=== PATIENT | female | born 1960 ===

== ENCOUNTER 2017-12-14 17:20 | Emergency (ER) | payer OTHER ==
[~2017-12-14] VITALS: Ht 152.4 cm; Wt 56.7 kg
--- NOTE | 2017-12-14 17:51 | ER Report ---
History and Physical Time Seen By MD: 17:51 (JORDAN MARIE-NIKO) HPI/ROS CHIEF COMPLAINT: Fainting episode HISTORY OF PRESENT ILLNESS: This is a 57-year-old female who presents to the emergency department from [facility] for a near syncopal episode. Patient was nearing the end of her physical therapy for her wrist fracture that she had in October, this was the 1st therapy appointment after having the cast removed. The patient states that towards the end of the session she became lightheaded, began to sweat, little bit of nausea and then began to "blackout" the staff at [facility] assisted her to the ground she did not fall. Patient arrives alert and oriented, no complaints other than mild nausea. No chest pain, shortness of breath, loss of bowel or bladder. No aches, chills, vomiting, diarrhea this time. REVIEW OF SYSTEMS: Constitutional: No fever, no chills. Eyes: No discharge. ENT: No sore throat. Cardiovascular: No chest pain, no palpitations. Respiratory: No cough, no shortness of breath. Gastrointestinal: No abdominal pain, no vomiting. Genitourinary: No hematuria. Musculoskeletal: No back pain. Skin: No rashes. Neurological: As above. (JORDAN MARIE-NIKO) Allergies: Coded Allergies: No Known Drug Allergies (Unverified , 12/14/17) Home Meds No Active Prescriptions or Reported Meds Past Medical/Surgical History Patient has a past medical and surgical history of fatty liver, left wrist fracture without surgery. Acid reflux. (JORDAN MARIE-NIKO) Reviewed Nurses Notes: Yes (JORDAN MARIE) Constitutional Vital Sign - Last 24 Hours 12/14/17 12/14/17 12/14/17 12/14/17 17:55 17:58 18:00 18:20 Temp 97.8 Pulse 57 55 Resp 16 7 B/P (MAP) 123/78 (93) 128/77 128/77 (94) Pulse Ox 97 O2 Delivery Room Air 12/14/17 12/14/17 12/14/17 12/14/17 18:30 18:50 19:00 19:30 Pulse 55 Resp 9 B/P (MAP) 119/69 (86) 114/39 (64) 106/72 (83) Pulse Ox 96 12/14/17 12/14/17 12/14/17 19:35 19:56 20:02 Pulse 64 85 Resp 18 16 B/P (MAP) 109/72 (84) 115/82 (93) Pulse Ox 94 95 O2 Delivery Room Air (RUSTSHARATH MD) Physical Exam General Appearance: The patient is alert, has no immediate need for airway protection and no signs of toxicity. Eyes: Pupils equal and round no pallor or injection. ENT, Mouth: Mucous membranes are moist. Respiratory: There are no retractions, lungs are clear to auscultation. Cardiovascular: Regular rate and rhythm, no murmurs, clicks or rubs. Gastrointestinal: Abdomen is soft and non tender, no masses, bowel sounds normal. Neurological: Alert and oriented 4. Moving all extremities. No focal neuro deficits. Following all commands. Cranial nerves II through XII intact and symmetrical. Skin: Warm and dry, no rashes. Musculoskeletal: Neck is supple non tender. Extremities are nontender, nonswollen and have full range of motion. DIFFERENTIAL DIAGNOSIS: After history and physical exam differential diagnosis was considered for syncope including but not limited to vasovagal syncope, arrhythmia, dehydration, and blood loss. (JORDAN MARIE [facility]) Medical Decision Making Data Points Result Diagram: 12/14/17182412/14/171824 Laboratory Hematology Test 12/14/17 18:25 12/14/17 19:26 Red Blood Count 4.43 M/uL (4.17-5.56) Mean Corpuscular Volume 90.5 fL (80.0-96.0) Mean Corpuscular Hemoglobin 31.7 pg (26.0-33.0) Mean Corpuscular Hemoglobin Concent 35.1 g/dL (32.0-36.0) Red Cell Distribution Width 13.0 % (11.5-14.5) Mean Platelet Volume 8.6 fL (7.2-11.1) Neutrophils (%) (Auto) 80.8 % (39.4-72.5) Lymphocytes (%) (Auto) 15.2 % (17.6-49.6) Monocytes (%) (Auto) 3.2 % (4.1-12.4) Eosinophils (%) (Auto) 0.3 % (0.4-6.7) Basophils (%) (Auto) 0.5 % (0.3-1.4) Nucleated RBC Relative Count (auto) 0.0 /100WBC Neutrophils # (Auto) 8.9 K/uL (2.0-7.4) Lymphocytes # (Auto) 1.7 K/uL (1.3-3.6) Monocytes # (Auto) 0.4 K/uL (0.3-1.0) Eosinophils # (Auto) 0.0 K/uL (0.0-0.5) Basophils # (Auto) 0.0 K/uL (0.0-0.1) Nucleated RBC Absolute Count (auto) 0.00 K/uL Sodium Level 135 mmol/L (137-145) Potassium Level 4.0 mmol/L (3.5-5.0) Chloride Level 100 mmol/L (98-107) Carbon Dioxide Level 24 mmol/L (22-31) Blood Urea Nitrogen 15 mg/dl (7-18) Creatinine 0.80 mg/dl (0.52-1.04) Glomerular Filtration Rate Calc > 60.0 Random Glucose 116 mg/dl (75-110) Calcium Level 9.6 mg/dl (8.4-10.2) Total Bilirubin 0.5 mg/dl (0.2-1.3) Aspartate Amino Transf (AST/SGOT) 33 U/L (0-35) Alanine Aminotransferase (ALT/SGPT) 64 U/L (0-56) Alkaline Phosphatase 93 U/L (0-126) Troponin I < 0.012 ng/ml Total Protein 7.7 gm/dl (6.3-8.2) Albumin 4.6 g/dl (3.5-5.0) Urine Color Yellow Urine Clarity Cloudy Urine pH 8.0 pH (4.8-9.5) Urine Specific [place] 1.016 Urine Protein Negative mg/dL (NEGATIVE) Urine Glucose (UA) Negative mg/dL (NEGATIVE) Urine Ketones Trace mg/dL (NEGATIVE) Urine Blood Negative (NEGATIVE) Urine Nitrite Negative (NEGATIVE) Urine Bilirubin Negative (NEGATIVE) Urine Urobilinogen Negative mg/dL (0.2-1.9) Urine Leukocyte Esterase Negative (NEGATIVE) Urine RBC None /HPF (0-2/HPF) Urine WBC <1 /HPF (0-5/HPF) Urine Squamous Epithelial Cells Moderate /LPF (</=FEW) Urine Amorphous Crystals Few /HPF Urine Bacteria Negative /HPF (NONE-FEW) Urine Mucus Few /HPF (NONE-FEW) Chemistry Test 12/14/17 18:25 12/14/17 19:26 White Blood Count 11.0 k/uL (4.5-11.0) Red Blood Count 4.43 M/uL (4.17-5.56) Hemoglobin 14.0 g/dL (12.0-16.0) Hematocrit 40.0 % (34.0-47.0) Mean Corpuscular Volume 90.5 fL (80.0-96.0) Mean Corpuscular Hemoglobin 31.7 pg (26.0-33.0) Mean Corpuscular Hemoglobin Concent 35.1 g/dL (32.0-36.0) Red Cell Distribution Width 13.0 % (11.5-14.5) Platelet Count 206 K/uL (150-450) Mean Platelet Volume 8.6 fL (7.2-11.1) Neutrophils (%) (Auto) 80.8 % (39.4-72.5) Lymphocytes (%) (Auto) 15.2 % (17.6-49.6) Monocytes (%) (Auto) 3.2 % (4.1-12.4) Eosinophils (%) (Auto) 0.3 % (0.4-6.7) Basophils (%) (Auto) 0.5 % (0.3-1.4) Nucleated RBC Relative Count (auto) 0.0 /100WBC Neutrophils # (Auto) 8.9 K/uL (2.0-7.4) Lymphocytes # (Auto) 1.7 K/uL (1.3-3.6) Monocytes # (Auto) 0.4 K/uL (0.3-1.0) Eosinophils # (Auto) 0.0 K/uL (0.0-0.5) Basophils # (Auto) 0.0 K/uL (0.0-0.1) Nucleated RBC Absolute Count (auto) 0.00 K/uL Glomerular Filtration Rate Calc > 60.0 Calcium Level 9.6 mg/dl (8.4-10.2) Total Bilirubin 0.5 mg/dl (0.2-1.3) Aspartate Amino Transf (AST/SGOT) 33 U/L (0-35) Alanine Aminotransferase (ALT/SGPT) 64 U/L (0-56) Alkaline Phosphatase 93 U/L (0-126) Troponin I < 0.012 ng/ml Total Protein 7.7 gm/dl (6.3-8.2) Albumin 4.6 g/dl (3.5-5.0) Urine Color Yellow Urine Clarity Cloudy Urine pH 8.0 pH (4.8-9.5) Urine Specific [place] 1.016 Urine Protein Negative mg/dL (NEGATIVE) Urine Glucose (UA) Negative mg/dL (NEGATIVE) Urine Ketones Trace mg/dL (NEGATIVE) Urine Blood Negative (NEGATIVE) Urine Nitrite Negative (NEGATIVE) Urine Bilirubin Negative (NEGATIVE) Urine Urobilinogen Negative mg/dL (0.2-1.9) Urine Leukocyte Esterase Negative (NEGATIVE) Urine RBC None /HPF (0-2/HPF) Urine WBC <1 /HPF (0-5/HPF) Urine Squamous Epithelial Cells Moderate /LPF (</=FEW) Urine Amorphous Crystals Few /HPF Urine Bacteria Negative /HPF (NONE-FEW) Urine Mucus Few /HPF (NONE-FEW) Urinalysis Test 12/14/17 19:26 Urine Color Yellow Urine Clarity Cloudy Urine pH 8.0 pH (4.8-9.5) Urine Specific [place] 1.016 Urine Protein Negative mg/dL (NEGATIVE) Urine Glucose (UA) Negative mg/dL (NEGATIVE) Urine Ketones Trace mg/dL (NEGATIVE) Urine Blood Negative (NEGATIVE) Urine Nitrite Negative (NEGATIVE) Urine Bilirubin Negative (NEGATIVE) Urine Urobilinogen Negative mg/dL (0.2-1.9) Urine Leukocyte Esterase Negative (NEGATIVE) Urine RBC None /HPF (0-2/HPF) Urine WBC <1 /HPF (0-5/HPF) Urine Squamous Epithelial Cells Moderate /LPF (</=FEW) Urine Amorphous Crystals Few /HPF Urine Bacteria Negative /HPF (NONE-FEW) Urine Mucus Few /HPF (NONE-FEW) (SHARATH CABRERA MD) EKG/Imaging EKG Interpretation 12 lead EK. Rhythm: Sinus bradycardia, ventricular rate 58 bpm. [place]: normal QRS: normal ST segments: No acute ST depression or elevation. Imaging PATIENT NAME: Deion MCKEON: 1960 MR: [id number] V: [id number] EXAM DATE: ORDERING PHYSICIAN: JORDAN MARIE TECHNOLOGIST: Location: [facility] - [place] Patient: Deion Ramirez : 1960 Visit/Account:[id number] Date of Sevice: 12/14/2017 INDICATION: near syncope. DATE: 12/14/2017 7:17 PM. TECHNIQUE: CHEST PA AND LAT COMPARISON: None FINDINGS: Heart size is normal. No effusion, consolidation, or pneumothorax. Normal expansion. IMPRESSION: No acute findings. Report Dictated By: Derrick Barragan MD at 12/14/2017 7:17 PM Report E-Signed By: Derrick Barragan MD at 12/14/2017 7:18 PM WSN:[id number] (JORDAN MARIE-BC) ED Course/Re-evaluation Clinical Indication for ER IV: Hydration, IV Access ED Course Patient was admitted to a room. A history and physical were obtained. Differential diagnoses were considered. An IV was started. 500 mils of lactated Ringer's was given. A CBC, CMP, UA and troponin were obtained. Laboratory studies and UA unremarkable. Negative troponin. 4 mg IV Zofran was given. EKG showing normal sinus rhythm no acute ST abnormalities. Two-view chest x-ray showing no acute cardiopulmonary process. I did review the results with the patient and her . I did explain to them that this is likely a vasovagal event related to her physical therapy. I also encouraged her to drink some fluids and eat something before her next physical therapy appointment. Patient was also encouraged to follow-up with her primary care provider or return to the emergency department for any other concerns or worsening symptoms. Patient and her had no other questions or concerns were discharged home. Decision to Disposition Date: Dec 14, 2017 Decision to Disposition Time: 19:44 (JORADN MARIE) Depart Departure Latest Vital Signs Vital Signs Date Time Temp Pulse Resp B/P (MAP) Pulse Ox O2 Delivery O2 Flow Rate FiO2 12/14/17 20:02 85 16 115/82 (93) 95 Room Air 12/14/17 17:58 97.8 (SHARATH CABRERA MD) Impression: Primary Impression: Vasovagal near syncope Condition: Improved Disposition: HOME OR SELF-CARE Referrals: APURVA HERNANDEZ MD (PCP) New Scripts No Active Prescriptions or Reported Meds Patient Instructions: Near Syncope (ED) Additional Instructions: Drink plenty of fluids. Get plenty of rest. Be sure to eat and drink fluids before your next physical therapy appointment. Sure to follow up with your primary care provider for any future needs or may have. May return to the emergency department for any other concerns or worsening symptoms. HEALTHCARE FINANCIAL ANALYST/PA consult with MD: Verbally (SHARATH CABRERA MD) JORDAN MARIE BONDING SUPERVISOR-BC Dec 14, 2017 17:51 SHARATH CABRERA MD Dec 14, 2017 18:10
[2017-12-14] MEDS ORDERED: ONDANSETRON 4 MG/2 ML VIAL IVP ONE (18:05)
[2017-12-14] MEDS ORDERED: LR(*) 1000 ML BAG 1,000 ML IV ONE (18:05)
--- NOTE | 2017-12-14 18:11 | EKG ---
[place] [facility] [place] LORRAINE MARIE : [id number] MR: [id number] V: [id number] EXAM DATE: ORDERING PHYSICIAN: JORDAN MARIE TECHNOLOGIST: EMMA Test Reason : SYNCOPE Blood Pressure : / mmHG Vent. Rate : 058 BPM Atrial Rate : 058 BPM P-R Int : 154 ms QRS Dur : 084 ms QT Int : 470 ms P-R-T Axes : 045 028 -08 degrees QTc Int : 461 ms Sinus bradycardia Diffuse ST-T changes concerning for ischemia Prolonged QT Abnormal ECG No previous ECGs available Confirmed by KYRA PATTERSON ([id number]) on 12/14/2017 8:24:07 PM Referred By: JORDAN Confirmed By:KYRA PATTERSON
[2017-12-14 18:33] LABS: PLATELET COUNT, AUTOMATED 206 K/uL (150-450)
--- NOTE | 2017-12-14 19:24 | RADIOLOGY IMAGING REPORT ---
FACILITY: [facility] - [place], [place] PATIENT NAME: Deion Ramirez : 1960 MR: [id number] V: [id number] EXAM DATE: ORDERING PHYSICIAN: JORDAN MARIE TECHNOLOGIST: Location: [facility] Patient: Deion Ramirez : 1960 Visit/Account:[id number] Date of Sevice: 12/14/2017 INDICATION: near syncope. DATE: 12/14/2017 7:17 PM. TECHNIQUE: CHEST PA AND LAT COMPARISON: None FINDINGS: Heart size is normal. No effusion, consolidation, or pneumothorax. Normal expansion. IMPRESSION: No acute findings. Report Dictated By: Derrick Barragan MD at 12/14/2017 7:17 PM Report E-Signed By: Derrick Barragan MD at 12/14/2017 7:18 PM WSN:[id number]
[2017-12-14 20:02] VITALS: BP 115/82
== END 2017-12-14 20:10 | disposition home or self-care (01) ==
LOC: ER 17:35
DX: R55 Syncope and collapse (principal)
CPT/HCPCS: 36415; 71046; 81001; 84484; 85025; 93005; 96361; 96374; 99284; J2405; J7120; 82040; 82247; 82310; 82374; 82435; 82565; 82947; 84075; 84132; 84155; 84295; 84450; 84460; 84520

== ENCOUNTER → 2018-04-10 | Outpatient (CLI) | payer OTHER ==
[~2018-04-10] MED LIST: IOPAMIDOL 76% 75 ML INFUS BTL 75 ML ONE
[2018-04-10 11:08] LABS: PLATELET COUNT, AUTOMATED 218 K/uL (150-450)
--- NOTE | 2018-04-10 12:50 | RADIOLOGY IMAGING REPORT ---
FACILITY: [facility] PATIENT NAME: Deion Ramirez : 1960 MR: [id number] V: [id number] EXAM DATE: ORDERING PHYSICIAN: ADEOLA BAILEY TECHNOLOGIST: Location: [facility] - [place] Patient: Deion Ramirez : 1960 Visit/Account:[id number] Date of Sevice: 04/10/2018 EXAMINATION: Facial bone CT with IV contrast History: Right-sided facial swelling COMPARISON STUDIES: none TECHNIQUE: Axial images were obtained from the superior aspect of the orbits through the inferior as pect of mandible. Coronal reformatted images were obtained from the axial source data. No IV contrast was administered. One of the following dose optimization techniques was utilized in the performance of this exam: Automated exposure control; adjustment of the mA and/or kV according to the patient's s ize; or use of an iterative reconstruction technique. Specific details can be referenced in the [facility]'s radiology CT exam operational policy. Contrast: 75 of IV Isovue-370 FINDINGS: Soft Tissues: Periauricular soft tissue stranding on the right. No evidence of abscess. Mandible / TMJ: negative Maxillae / pterygoid plates: negative Zygoma / zygomatic arches: negative Orbits: negative Nasal bones / nasal septum: negative Sinuses: negative Visualized brain: negative IMPRESSION: Periauricular soft tissue stranding on the right suspicious for cellulitis. No evidence of abscess or osteomyelitis. Report Dictated By: Albert Webster MD at 04/10/2018 12:25 PM Report E-Signed By: Albert Webster MD at 04/10/2018 12:45 PM WSN:[id number]
== END ==
LOC: CT 10:44
PROVIDERS: ATTEND Family Medicine
DX: L03.213 Periorbital cellulitis (principal)
CPT/HCPCS: 36415; 70488; 85025; 85651; Q9967; 82310; 82374; 82435; 82565; 82947; 84132; 84295; 84520

== ENCOUNTER 2018-07-02 00:11 | Day surgery (SDC) | payer OTHER ==
[~2018-07-02] VITALS: Ht 157.5 cm; Wt 54.0 kg
[~2018-07-02 00:11] MED LIST changes: +IODI150T PO; -IOPAMIDOL 76% 75 ML INFUS BTL 75 ML ONE; +MULT1CAP59 PO
[2018-07-02 08:37] VITALS: BP 105/69
[2018-07-02] MEDS ORDERED: PROPOFOL EMUL(*) 10MG/ML 20 ML 20 ML ONE ×2 (09:07)
[2018-07-02] MEDS ORDERED: NORMOSOL R SOLN(*) 1000 ML BAG 1,000 ML IV PRN (09:10)
[2018-07-02] MEDS ORDERED: LIDOCAINE/SOD BICARB 8.4% SYR ID ONE (09:10)
[2018-07-02 10:28] VITALS: BP 84/48
--- NOTE | 2018-07-02 10:35 | Short(Outpt) Discharge Summary ---
Discharge Summary Reason for Hosp/Final Diag: (1) Colon cancer screening Status: Chronic Hospital Course & Plan: Colonoscopy completed without problems; normal. Departure Discharge to: Home, Self Care Discharge Instructions Home Meds Reported Medications Iodine (KELP) 150 Mcg Tablet, PO DAILY 06/17/18 Multivitamin (MULTIVITAMINS) 1 Each Capsule, 1 EACH PO DAILY, CAPSULE 06/17/18 Diet: Regular Activity: As Tolerated Special Instructions: Your colonoscopy was completed without problems and your prep was excellent (Good Job!!). Your colonoscopy was completely normal. I recommend that your next colonoscopy be in 10 years. SOLOMON STANFORD MD Jul 02, 2018 10:35
[2018-07-02 10:45] VITALS: BP 88/55
[2018-07-02 11:00] VITALS: BP 96/65
[2018-07-02 11:14] VITALS: BP 101/76
[2018-07-02 11:15] VITALS: BP 126/77
== END 2018-07-02 12:30 | disposition home or self-care (01) ==
LOC: OR 00:11
PROVIDERS: ATTEND Surgery
DX: Z12.11 Encounter for screening for malignant neoplasm of colon (principal)
CPT/HCPCS: 00812; 45378; J2704

== ENCOUNTER → 2019-06-08 | Outpatient (CLI) | payer OTHER ==
[2019-06-08 12:27] LABS: LDL CHOLESTEROL 110 mg/dl
== END ==
LOC: LAB 11:50
PROVIDERS: ATTEND Family Medicine
DX: E03.9 Hypothyroidism, unspecified (principal); E78.5 Hyperlipidemia, unspecified; R73.01 Impaired fasting glucose
CPT/HCPCS: 36415; 82040; 82247; 82310; 82374; 82435; 82465; 82565; 82947; 83036; 83718; 84075; 84132; 84155; 84295; 84443; 84450; 84460; 84478; 84520